=== PATIENT | female | born 1990 | race Caucasian/White ===

== ENCOUNTER 2017-01-28 10:54 | Emergency (ER) | payer SELFPAY ==
[~2017-01-28] VITALS: Ht 162.6 cm; Wt 55.5 kg
[2017-01-28 11:03] VITALS: BP 102/63; PULSE 98; RESP 16; TEMP 98.8; O2SAT 99
--- NOTE | 2017-01-28 11:28 | PD ---
HPI Chief Complaint: ENT Complaint Time Seen by Provider: 11:28 Travel History International Travel<30 days: No Contact w/Intl Traveler<30days: No Traveled to known affect area: No History of Present Illness HPI 26-year-old female presents the emergency department with one week history of sore throat and congestion on the left greater than right side. Patient denies fever, chills, postnasal drip, headache, but has some ear pain. Patient denies dental pain. She has no nausea, vomiting, or heartburn. She has no cough or shortness of breath. Patient states she had similar episode in 2016. Patient has no known drug allergies. 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") Tetanus Vaccination: < 5 Years Influenza Vaccination: Yes ?: Unknown LMP: 12/03 : 5 Para: 4 : 1 Past Surgical History Surgical History: No Previous Surgery Social History Alcohol Use: No Tobacco Use: Yes (1/2PPD) Substance Use: No Allergies-Medications (Allergen,Severity, Reaction): Coded Allergies: No Known Allergies (Unverified , 01/28/17) Reported Meds & Prescriptions Reported Meds & Active Scripts Active Review of Systems Except as stated in HPI: all other systems reviewed are Neg General / Constitutional: No: Fever Eyes: No: Visual changes HENT: Positive: Sore Throat, Congestion, Earache, No: Headaches, Vertigo, Lightheadedness, Rhinitis, Rhinorrhea, Nosebleed, Neck Stiffness, Neck Pain, Gingival Bleeding, Dental Difficulties, Ear Discharge Cardiovascular: No: Chest Pain or Discomfort Respiratory: No: Cough, Shortness of Breath Gastrointestinal: No: Nausea, Vomiting, Diarrhea, Abdominal Pain Genitourinary: No: Dysuria Musculoskeletal: No: Pain Skin: No Rash Neurologic: No: Weakness Psychiatric: No: Depression Endocrine: No: Polydipsia Hematologic/Lymphatic: No: Easy Bruising Physical Exam Narrative GENERAL: Patient appears in no acute distress. SKIN: Warm and dry. Color. Normal turgor. HEAD: Atraumatic. Normocephalic. EYES: Pupils equal and round. No scleral icterus. No injection or drainage. ENT: No nasal bleeding or discharge. Mucous membranes pink and moist. Pharynx shows mild erythema and tonsillitis somewhat greater on the left than the right. There is no exudate. Uvula is midline. TMs are clear bilaterally. There is no dental abscess. NECK: Trachea midline. No JVD. Supple and nontender. CARDIOVASCULAR: Regular rate and rhythm. RESPIRATORY: No accessory muscle use. Clear to auscultation. Breath sounds equal bilaterally. GASTROINTESTINAL: Abdomen soft, non-tender, nondistended. Hepatic and splenic margins not palpable. MUSCULOSKELETAL: Extremities without clubbing, cyanosis, or edema. No obvious deformities. NEUROLOGICAL: Awake and alert. No obvious cranial nerve deficits. Motor grossly within normal limits. Five out of 5 muscle strength in the arms and legs. Normal speech. PSYCHIATRIC: Appropriate mood and affect; insight and judgment normal. Data Data Last Documented VS Vital Signs Date Time Temp Pulse Resp B/P Pulse Ox O2 Delivery O2 Flow Rate FiO2 01/28/17 11:09 18 01/28/17 11:03 98.8 98 102/63 99 MDM Medical Decision Making Medical Screen Exam Complete: Yes Emergency Medical Condition: Yes Differential Diagnosis Tonsillitis. Pharyngitis. Sore throat. Narrative Course Patient is medically stable at time of exam. Airway is patent. Patient treated with Augmentin 875 twice a day 10 days. Patient's given Flonase nasal spray 2 sprays each nostril daily. Patient state [id number] ibuprofen and Tylenol as necessary. Patient follow with primary care physician or return to emergency Department with worsening symptoms as necessary. Diagnosis Primary Impression: Acute tonsillitis Qualified Code: J03.80 - Acute tonsillitis due to other specified organisms Referrals: Primary Care Physician Patient Instructions: General Instructions Additional Instructions: Patient treated with Augmentin 875 twice a day 10 days. Patient's given Flonase nasal spray 2 sprays each nostril daily. Patient state [id number] ibuprofen and Tylenol as necessary. Patient follow with primary care physician or return to emergency Department with worsening symptoms as necessary. Med/Other Pt SpecificInfo: Prescription(s) given Scripts Fluticasone Nasal Hague (Flonase Allergy Relief Children Nasal Hague)50 Mcg/Act Spray2 H[place] EACH NARE DAILY #1 BOTTLE 50 mcg/spray Prov:Hadley Borrero MD 01/28/17 Amoxicillin-Clavulanate (Augmentin)875-125 mg Tbz529 Mg PO BID #20 TAB not for use in CrCl <30 ml/min. Prov:Hadley Borrero MD 01/28/17 Disposition: 01 DISCHARGE HOME Condition: Stable Jose Mazariegos January 28, 2017 11:28
[2017-01-28] MEDS ORDERED: AUGM875T PO (11:40)
[2017-01-28] MEDS ORDERED: FLUT1SPR9 EACH NARE (11:40)
== END 2017-01-28 11:56 | disposition home or self-care (01) ==
LOC: PHEFT 10:54
DX: J03.80 Acute tonsillitis due to other specified organisms (principal); H92.09 Otalgia, unspecified ear; F17.200 Nicotine dependence, unspecified, uncomplicated; Z86.59 Personal history of other mental and behavioral disorders; Z86.718 Personal history of other venous thrombosis and embolism
CPT/HCPCS: 99283